=== PATIENT | female | born 1960 | race Caucasian/White ===

== ENCOUNTER → 2018-04-13 | Outpatient (CLI) | payer BC ==
[2018-04-13 09:28] LABS: HCT 42.8 % (34.0-46.0); HGB 14.4 gm/dL (11.4-16.0); MCH 31.7 pg (25.0-35.0); MCHC 33.6 g/dL (31.0-37.0); MCV 94.4 fL (80.0-100.0); Mean Platelet Volume 6.7; Platelet Count 279 k/uL (150-450); RBC 4.53 m/uL (3.80-5.40); RDW 13.3 % (11.5-15.5); WBC 5.4 k/uL (3.8-10.6)
[2018-04-13 09:39] LABS: ALT 32 U/L (9-52); AST 21 U/L (14-36); Albumin 4.3 g/dL (3.5-5.0); Alkaline Phosphatase 83 U/L (38-126); Anion Gap 5 mmol/L; Blood Urea Nitrogen 16 mg/dL (7-17); Calcium 9.4 mg/dL (8.4-10.2); Carbon Dioxide 31 mmol/L (22-30); Chloride 106 mmol/L (98-107); Cholesterol 154 mg/dL (<200); Glucose 82 mg/dL (74-99); HDL Cholesterol 61 mg/dL (40-60); LDL Cholesterol,Calculated 84 mg/dL (0-99); Potassium 4.1 mmol/L (3.5-5.1); Sodium 142 mmol/L (137-145); Total Bilirubin 0.5 mg/dL (0.2-1.3); Total Protein 7.3 g/dL (6.3-8.2); Triglycerides 46 mg/dL (<150)
[2018-04-13 09:53] LABS: T4, Free (Free Thyroxine) 0.81 ng/dL (0.78-2.19)
== END | disposition home or self-care (01) ==
LOC: LABWHC1 08:50
PROVIDERS: ATTEND Obstetrics & Gynecology
DX: R53.83 Other fatigue (principal); Z13.220 Encounter for screening for lipoid disorders; Z13.29 Encounter for screening for other suspected endocrine disorder; Z13.1 Encounter for screening for diabetes mellitus
CPT/HCPCS: 36415; 80053; 80061; 82306; 84439; 84443; 85027

== ENCOUNTER → 2018-11-07 | Outpatient (CLI) | payer OTHER ==
--- NOTE | 2018-11-07 10:26 | US ---
EXAMINATION TYPE: US transvaginal DATE OF EXAM: 11/07/2018 COMPARISON: NONE CLINICAL HISTORY: R10.2 pelvic pain. Pelvic pain, right > left; G0 TECHNIQUE: Transvaginal (TV) as patient is unable to hold full bladder for TA US Date of LMP: approximately age 56 EXAM MEASUREMENTS: Uterus: 5.8 x 3.9 x 1.9 cm Endometrial Stripe: 0.2 cm Right Ovary: 1.6 x 0.8 x 0.8 cm Left Ovary: 1.7 x 1.4 x 0.6 cm Prominent overlying bowel is noted especially on right side 1. Uterus: Retroverted 2. Endometrium: thickness is wnl post menopause 3. Right Ovary: small follicles 4. Left Ovary: small follicles Spectral, color and waveform Doppler imaging shows good arterial and venous flow within the ovaries ; there is no evidence for ovarian torsion. 5. Bilateral Adnexa: wnl 6. Posterior cul-de-sac: wnl IMPRESSION: No distinct abnormality appreciated at this time.
== END ==
LOC: RADUSWWP 09:16
PROVIDERS: ATTEND Obstetrics & Gynecology
DX: R10.2 Pelvic and perineal pain (principal)
CPT/HCPCS: 76830

== ENCOUNTER → 2021-07-07 | Outpatient (CLI) | payer OTHER ==
[2021-07-08 00:38] LABS: African American GFR (CKD) 110.7 (60.0-200.0); Blood Urea Nitrogen 12.4 mg/dL (9.0-27.0); Non-African American GFR(CKD) 95.5 (60.0-200.0)
== END | disposition home or self-care (01) ==
LOC: LABWHC1 13:21
PROVIDERS: ATTEND Psychiatry & Neurology Neurology
DX: R51.9 Headache, unspecified (principal)
CPT/HCPCS: 36415; 82565; 84520

== ENCOUNTER → 2021-07-09 | Outpatient (CLI) | payer OTHER ==
--- NOTE | 2021-07-09 10:05 | MR ---
EXAMINATION TYPE: MR brain wo/w con DATE OF EXAM: 07/09/2021 COMPARISON: Outside brain MRI February 24, 2014 HISTORY: Brain Tumor, pain left side of head TECHNIQUE: Multiplanar, multisequence images of the brain and brainstem is performed without and with IV contras t, utilizing 5 mL intravenous Gadavist . FINDINGS: Diffusion weighted images demonstrate no evidence of a recent infarct or other diffusion ab normality. There is no extra-axial fluid collection or significant white matter signal abnormality. The ventricular system and cisternal spaces are normal in size and appearance. The brain volume is age appropriate. Midline structures demonstrate normal morphology. The craniocervical junction appears within normal limits. Post contrast images demonstrate no abnormal enhancement. The dural venous sinuses appear pa tent. The visualized sinuses are clear and the globes are intact. IMPRESSION: Unremarkable study. No significant change from outside MRI images 2013.
== END | disposition home or self-care (01) ==
LOC: RADMRIMAIN 06:33
PROVIDERS: ATTEND Psychiatry & Neurology Neurology
DX: C71.9 Malignant neoplasm of brain, unspecified (principal)
CPT/HCPCS: 70553; A9585

== ENCOUNTER 2022-03-31 12:58 | Emergency (ER) | payer OTHER ==
[2022-03-31 13:10] VITALS: TEMP 98.4
--- NOTE | 2022-03-31 13:29 | ED ---
General Adult HPI - General Source: patient, RN notes reviewed Mode of arrival: ambulatory Limitations: no limitations <Alberto Durbin - Last Filed: 03/31/22 14:56> <Matthew Alves - Last Filed: 03/31/22 17:16> - General Chief complaint: Weakness Stated complaint: b/l leg edema Time Seen by Provider: 03/31/22 13:11 - History of Present Illness Initial comments: Patient is a pleasant 61-year-old female presenting to the emergency department with concerns with swelling of her legs. Symptoms have been present the past couple of days. Patient notices some swelling with some mild discomfort anterior legs. Patient also has some mild diffuse joint discomfort and questions if that is her S2 arthritis causing this. Patient also questions if her anxiety is making her symptoms worse. Patient has mild increased urinary frequency. (Alberto Durbin) - Related Data Allergies Allergy/AdvReac Type Severity Reaction Status Date / Time iodine AdvReac Anaphylaxis Verified 03/31/22 13:10 Review of Systems ROS Other: All systems not noted in ROS Statement are negative. Constitutional: Denies: fever Eyes: Denies: eye pain ENT: Denies: ear pain Respiratory: Denies: cough Cardiovascular: Denies: chest pain Endocrine: Reports: fatigue Gastrointestinal: Denies: abdominal pain Genitourinary: Reports: frequency Musculoskeletal: Reports: as per HPI Skin: Denies: rash Neurological: Denies: confusion <Alberto Durbin - Last Filed: 03/31/22 14:56> ROS Other: All systems not noted in ROS Statement are negative. <Matthew Alves - Last Filed: 03/31/22 17:16> ROS Statement: Those systems with pertinent positive or pertinent negative responses have been documented in the HPI. Past Medical History Past Medical History: Osteoarthritis (OA) Past Surgical History: No Surgical Hx Reported, Orthopedic Surgery Past Psychological History: No Psychological Hx Reported Smoking Status: Never smoker Past Alcohol Use History: None Reported Past Drug Use History: None Reported <Alberto Durbin - Last Filed: 03/31/22 14:56> General Exam Limitations: no limitations General appearance: alert, in no apparent distress Head exam: Present: normocephalic Eye exam: Present: normal appearance Neck exam: Present: normal inspection Respiratory exam: Present: normal lung sounds bilaterally Cardiovascular Exam: Present: regular rate, normal rhythm Expanded Peripheral pulses: 2+: Posterior Tibialis (R), Posterior Tibialis (L), Dorsalis Pedis (R), Dorsalis Pedis (L) GI/Abdominal exam: Present: soft. Absent: tenderness Extremities exam: Present: pedal edema (Trace bilateral). Absent: calf tenderness Neurological exam: Present: alert. Absent: motor sensory deficit Psychiatric exam: Present: normal affect, normal mood Skin exam: Present: normal color <Alberto Durbin - Last Filed: 03/31/22 14:56> Course Vital Signs 03/31/22 03/31/22 13:06 16:42 Temperature 98.4 F Pulse Rate 85 78 Respiratory 20 16 Rate Blood Pressure 136/77 123/82 O2 Sat by Pulse 96 98 Oximetry Medical Decision Making - Radiology Data Radiology results: report reviewed (Bilateral leg ultrasound negative for DVT) <Alberto Durbin - Last Filed: 03/31/22 14:56> - Lab Data Result diagrams: 03/31/22 14:43 03/31/22 14:43 <Matthew Alves - Last Filed: 03/31/22 17:16> - Medical Decision Making The patient was passed off from previous shift. The laboratory overall is unremarkable. The chest x-ray showed possible hyperinflation and/or COPD changes. The patient denies any tobacco history. She does exercise regularly. There is no shortness of breath. It is felt as though this potentially could be an over read and this is discussed with patient. If she is concerned in this r egard she is instructed to follow-up with primary care for pulmonary function studies. The patient had a lower extremity venous Doppler which is negative for DVT. She is still concern as to the cause of her lower extremity subjective swelling. I do not notice any significant degree of swelling on my exam. She likely does have some dependent edema and this is discussed in significant detail. Compression stockings are recommended. leg elevation is recommended. At disposition, she is requesting that her urinalysis be sent for evaluation as she's had some urinary frequency. This is sent for evaluation as well and followed up on. Return parameters are discussed. Close follow-up with primary care recommended. (Matthew Alves) - Lab Data Lab Results 03/31/22 03/31/22 03/31/22 Range/Units 14:43 14:43 14:43 WBC 8.0 (3.8-10.6) k/uL RBC 5.11 (3.80-5.40) m/uL Hgb 15.9 (11.4-16.0) gm/dL Hct 48.6 H (34.0-46.0) % MCV 95.1 (80.0-100.0) fL MCH 31.2 (25.0-35.0) pg MCHC 32.8 (31.0-37.0) g/dL RDW 12.8 (11.5-15.5) % Plt Count 310 (150-450) k/uL MPV 7.0 Neutrophils % 65 % Lymphocytes % 23 % Monocytes % 7 % Eosinophils % 2 % Basophils % 1 % Neutrophils # 5.3 (1.3-7.7) k/uL Lymphocytes # 1.9 (1.0-4.8) k/uL Monocytes # 0.5 (0-1.0) k/uL Eosinophils # 0.2 (0-0.7) k/uL Basophils # 0.1 (0-0.2) k/uL PT 10.7 (9.0-12.0) sec INR 1.0 (<1.2) APTT 25.3 (22.0-30.0) sec Sodium 140 (137-145) mmol/L Potassium 3.9 (3.5-5.1) mmol/L Chloride 100 (98-107) mmol/L Carbon Dioxide 24 (22-30) mmol/L Anion Gap 16 mmol/L BUN 16 (7-17) mg/dL Creatinine 0.58 (0.52-1.04) mg/dL Est GFR (CKD-EPI)AfAm >90 (>60 ml/min/1.73 sqM) Est GFR (CKD-EPI)NonAf >90 (>60 ml/min/1.73 sqM) Glucose 83 (74-99) mg/dL Calcium 10.1 (8.4-10.2) mg/dL Total Bilirubin 0.7 (0.2-1.3) mg/dL AST 29 (14-36) U/L ALT 18 (4-34) U/L Alkaline Phosphatase 105 (38-126) U/L C-Reactive Protein <0.5 (<1.0) mg/dL NT-Pro-B Natriuret Pep pg/mL Total Protein 8.4 H (6.3-8.2) g/dL Albumin 5.1 H (3.5-5.0) g/dL 03/31/22 Range/Units 14:43 WBC (3.8-10.6) k/uL RBC (3.80-5.40) m/uL Hgb (11.4-16.0) gm/dL Hct (34.0-46.0) % MCV (80.0-100.0) fL MCH (25.0-35.0) pg MCHC (31.0-37.0) g/dL RDW (11.5-15.5) % Plt Count (150-450) k/uL MPV Neutrophils % % Lymphocytes % % Monocytes % % Eosinophils % % Basophils % % Neutrophils # (1.3-7.7) k/uL Lymphocytes # (1.0-4.8) k/uL Monocytes # (0-1.0) k/uL Eosinophils # (0-0.7) k/uL Basophils # (0-0.2) k/uL PT (9.0-12.0) sec INR (<1.2) APTT (22.0-30.0) sec Sodium (137-145) mmol/L Potassium (3.5-5.1) mmol/L Chloride (98-107) mmol/L Carbon Dioxide (22-30) mmol/L Anion Gap mmol/L BUN (7-17) mg/dL Creatinine (0.52-1.04) mg/dL Est GFR (CKD-EPI)AfAm (>60 ml/min/1.73 sqM) Est GFR (CKD-EPI)NonAf (>60 ml/min/1.73 sqM) Glucose (74-99) mg/dL Calcium (8.4-10.2) mg/dL Total Bilirubin (0.2-1.3) mg/dL AST (14-36) U/L ALT (4-34) U/L Alkaline Phosphatase (38-126) U/L C-Reactive Protein (<1.0) mg/dL NT-Pro-B Natriuret Pep 46 pg/mL Total Protein (6.3-8.2) g/dL Albumin (3.5-5.0) g/dL Disposition <Alberto Durbin - Last Filed: 03/31/22 14:56> Is patient prescribed a controlled substance at d/c from ED?: No Time of Disposition: 17:16 <Matthew Alves - Last Filed: 03/31/22 17:16> Clinical Impression: Leg swelling Disposition: HOME SELF-CARE Condition: Good Instructions (If sedation given, give patient instructions): Leg Edema (ED) Referrals: Nonstaff,Physician [REFERRING] - 1-2 days
--- NOTE | 2022-03-31 14:09 | US ---
EXAMINATION TYPE: US venous doppler duplex LE DATE OF EXAM: 03/31/2022 1:56 PM COMPARISON: NONE CLINICAL HISTORY: swelling. leg swelling since January SIDE PERFORMED: Bilateral TECHNIQUE: The lower extremity deep venous system is examined utilizing real time linear array sonog jeffery with graded compression, doppler sonography and color-flow sonography. VESSELS IMAGED: Common Femoral Vein Deep Femoral Vein Greater Saphenous Vein * Femoral Vein Popliteal Vein Small Saphenous Vein * Proximal Calf Veins (* superficial vessels) Right Leg: Negative for DVT Left Leg: Negative for DVT Grayscale, color doppler, spectral doppler imaging performed of the deep veins of the lower extremiti es. There is normal flow, compressibility, vascular waveforms. IMPRESSION: No evidence for deep vein to most of either lower extremity.
[2022-03-31 15:03] LABS: Basophils # (A) 0.1 k/uL (0-0.2); Basophils % (A) 1 %; Eosinophils # (A) 0.2 k/uL (0-0.7); Eosinophils % (A) 2 %; HCT 48.6 % (34.0-46.0); HGB 15.9 gm/dL (11.4-16.0); Lymphocytes # (A) 1.9 k/uL (1.0-4.8); Lymphocytes % (A) 23 %; MCH 31.2 pg (25.0-35.0); MCHC 32.8 g/dL (31.0-37.0); MCV 95.1 fL (80.0-100.0); Monocytes # (A) 0.5 k/uL (0-1.0); Monocytes % (A) 7 %; Neutrophils # (A) 5.3 k/uL (1.3-7.7); Neutrophils % (A) 65 %; Platelet Count 310 k/uL (150-450); RBC 5.11 m/uL (3.80-5.40); RDW 12.8 % (11.5-15.5)
[2022-03-31 15:11] LABS: Partial Thromboplastin Time 25.3 sec (22.0-30.0); Prothrombin Time 10.7 sec (9.0-12.0)
[2022-03-31 15:14] LABS: ALT 18 U/L (4-34); AST 29 U/L (14-36); African American GFR (CKD) >90 (>60 ml/min/1.73 sqM); Albumin 5.1 g/dL (3.5-5.0); Alkaline Phosphatase 105 U/L (38-126); Anion Gap 16 mmol/L; Blood Urea Nitrogen 16 mg/dL (7-17); C Reactive Protein <0.5 mg/dL (<1.0); Calcium 10.1 mg/dL (8.4-10.2); Carbon Dioxide 24 mmol/L (22-30); Chloride 100 mmol/L (98-107); Glucose 83 mg/dL (74-99); Non-African American GFR(CKD) >90 (>60 ml/min/1.73 sqM); Potassium 3.9 mmol/L (3.5-5.1); Sodium 140 mmol/L (137-145); Total Bilirubin 0.7 mg/dL (0.2-1.3); Total Protein 8.4 g/dL (6.3-8.2)
--- NOTE | 2022-03-31 15:27 | XR ---
EXAMINATION TYPE: XR chest 2V DATE OF EXAM: 03/31/2022 COMPARISON: None HISTORY: 61-year-old female bilateral leg edema and weakness TECHNIQUE: PA and lateral views FINDINGS: Heart normal size. Aorta and pulmonary vasculature within normal limits. Mild interstitial prominence as a chronic appearance. Mild hyperinflation. No consolidation or pleural effusion. IMPRESSION: Possible underlying COPD. Otherwise, no acute process seen.
[2022-03-31 16:51] VITALS: RESP 16
[2022-03-31 17:23] LABS: Appearance,Urine Clear (Clear); Bilirubin,Urine Negative (Negative); Blood,Urine Negative (Negative); Color,Urine Colorless; Glucose,Urine (UA) Negative (Negative); Ketones,Urine Negative (Negative); Leukocyte Esterase,Urine Negative (Negative); Nitrite,Urine Negative (Negative); PH, Urine 6.5 (5.0-8.0); Protein,Urine Negative (Negative); Specific Gravity,Urine 1.001 (1.001-1.035); Urobilinogen,Urine <2.0 mg/dL (<2.0)
[2022-03-31 17:50] VITALS: BP 121/74; PULSE 69
== END 2022-03-31 17:49 | disposition home or self-care (01) ==
LOC: EC 12:58
DX: M79.89 Other specified soft tissue disorders (principal); R53.1 Weakness; Z88.5 Allergy status to narcotic agent; Z88.8 Allergy status to other drugs, medicaments and biological substances
CPT/HCPCS: 36415; 71046; 80053; 81003; 83880; 85025; 85610; 85730; 86140; 93970; 99285

== ENCOUNTER 2022-11-20 12:28 | Observation (INO) | payer OTHER ==
[2022-11-20] MEDS ORDERED: ASPIRIN 81 MG PO STA (12:47)
[2022-11-20 13:05] LABS: Basophils % (A) 0 %; Eosinophils # (A) 0.1 k/uL (0-0.7); Eosinophils % (A) 2 %; HCT 42.9 % (34.0-46.0); HGB 15.1 gm/dL (11.4-16.0); Lymphocytes # (A) 2.1 k/uL (1.0-4.8); Lymphocytes % (A) 36 %; MCH 32.6 pg (25.0-35.0); MCHC 35.3 g/dL (31.0-37.0); MCV 92.4 fL (80.0-100.0); Mean Platelet Volume 7.2; Monocytes # (A) 0.3 k/uL (0-1.0); Monocytes % (A) 5 %; Neutrophils # (A) 3.3 k/uL (1.3-7.7); Neutrophils % (A) 55 %; Platelet Count 299 k/uL (150-450); RBC 4.64 m/uL (3.80-5.40); RDW 13.4 % (11.5-15.5); WBC 5.9 k/uL (3.8-10.6)
--- NOTE | 2022-11-20 13:17 | XR ---
EXAMINATION TYPE: XR chest 2V DATE OF EXAM: 11/20/2022 COMPARISON: Chest x-ray March 31, 2022 HISTORY: Chest pain. TECHNIQUE: Frontal and lateral views of the chest are obtained. FINDINGS: There is no focal air space opacity, pleural effusion, or pneumothorax seen. The cardiac silhouette size is stable and within normal limits. The osseous structures are intact. Overlying EK G leads are now seen on current study. IMPRESSION: No acute process. No significant change from prior
[2022-11-20 13:22] LABS: ALT 19 U/L (4-34); AST 27 U/L (14-36); African American GFR (CKD) >90 (>60 ml/min/1.73 sqM); Albumin 4.3 g/dL (3.5-5.0); Alkaline Phosphatase 79 U/L (38-126); Anion Gap 8 mmol/L; Blood Urea Nitrogen 13 mg/dL (7-17); Calcium 9.8 mg/dL (8.4-10.2); Carbon Dioxide 27 mmol/L (22-30); Chloride 105 mmol/L (98-107); Glucose 91 mg/dL (74-99); Magnesium 2.2 mg/dL (1.6-2.3); Non-African American GFR(CKD) >90 (>60 ml/min/1.73 sqM); Sodium 140 mmol/L (137-145); Total Bilirubin 0.6 mg/dL (0.2-1.3); Total Protein 7.4 g/dL (6.3-8.2)
[2022-11-20 13:23] LABS: Partial Thromboplastin Time 24.8 sec (22.0-30.0); Prothrombin Time 10.4 sec (9.0-12.0)
--- NOTE | 2022-11-20 13:55 | ED ---
Chest Pain HPI - General Chief Complaint: Chest Pain Stated Complaint: chest pain Time Seen by Provider: 11/20/22 12:38 Source: patient, family, RN notes reviewed Mode of arrival: wheelchair Limitations: no limitations - History of Present Illness Initial Comments: 8-year-old female presents emergency Department with chief complaint of chest pain. Patient states she had covid Several weeks ago does admit that she's had continuation of cough congestion. Patient states though she has not felt well today states that she exercises morning didn't feel well. She then was at the movies and developed worsening chest pain or shortness of breath. Patient denies any prior cardiac disease denies any medications for hyperlipidemia hypertension or diabetes. Patient denies any leg pain but states that she's had ongoing swelling of her right greater than left leg. Denies any diaphoretic episodes denies any current nausea. - Related Data Home Medications Medication Instructions Recorded Confirmed Cholecalciferol [Vitamin D3 (25 50 mcg PO DAILY 11/20/22 11/20/22 Mcg = 1000 Iu)] Multivit-Min/Iron/Folic/Lutein 1 tab PO DAILY 11/20/22 11/20/22 [Centrum Silver Women Tablet] [place]-3/Dha/Epa/Fish Oil [Fish Oil 1 cap PO DAILY 11/20/22 11/20/22 1,000 mg Softgel] valACYclovir HCL [Valtrex] 500 mg PO DAILY 11/20/22 11/20/22 Allergies Allergy/AdvReac Type Severity Reaction Status Date / Time iodine AdvReac Anaphylaxis Verified 11/20/22 14:36 Review of Systems ROS Statement: Those systems with pertinent positive or pertinent negative responses have been documented in the HPI. ROS Other: All systems not noted in ROS Statement are negative. EKG Findings - EKG Comments: EKG Findings:: EKG performed at 12:42 sinus rhythm rate of 77 CA 137 QRS 87 QT/QTC 375/406 - EKG Results: EKG: interpreted by JORDON Past Medical History Past Medical History: Osteoarthritis (OA) Past Surgical History: No Surgical Hx Reported, Orthopedic Surgery Past Psychological History: No Psychological Hx Reported Smoking Status: Never smoker Past Alcohol Use History: None Reported Past Drug Use History: None Reported General Exam Limitations: no limitations General appearance: alert, in no apparent distress Head exam: Present: atraumatic, normocephalic, normal inspection Eye exam: Present: normal appearance, PERRL, EOMI. Absent: scleral icterus, conjunctival injection, periorbital swelling ENT exam: Present: normal exam, normal oropharynx, mucous membranes moist, TM's normal bilaterally Neck exam: Present: normal inspection. Absent: tenderness, meningismus, lymphadenopathy Respiratory exam: Present: normal lung sounds bilaterally. Absent: respiratory distress, wheezes, rales, rhonchi, stridor Cardiovascular Exam: Present: regular rate, normal rhythm, normal heart sounds. Absent: systolic murmur, diastolic murmur, rubs, gallop, clicks Neurological exam: Present: alert Course Vital Signs 11/20/22 12:32 Temperature 97.5 F L Pulse Rate 88 Respiratory 16 Rate Blood Pressure 162/91 O2 Sat by Pulse 100 Oximetry Chest Pain MDM - MDM Was pt. sent in by a medical professional or institution (, PA, TOUR OPERATOR, urgent care, hospital, or prison...) When possible be specific @ -[No] Did you speak to anyone other than the patient for history (EMS, parent, family, police, friend...)? What history was obtained from this source @ -[No] Did you review nursing and triage notes (agree or disagree)? Why? @ -[I reviewed and agree with nursing and triage notes] Were old charts reviewed (outside hosp., previous admission, EMS record, old EKG, old radiological studies, urgent care reports/EKG's, prison records)? Report findings @ -[No old charts were reviewed] Differential Diagnosis (chest pain, altered mental status, abdominal pain women, abdominal pain men, vaginal bleeding, weakness, fever, dyspnea, syncope, headache, dizziness, GI bleed, back pain, seizure, CVA, palpatations, mental health, musculoskeletal)? @ -[Differential Chest Pain: Stable Angina, Unstable Angina, STEMI, NSTEMI Aortic Dissection, Pneumothorax, Musculoskeletal, Esophageal Spasm GERD, Cholecystitis, Pancreatitis, Zoster, this is not meant to be an all-inclusive list. e] EKG interpreted by me (3pts min.). @ -[As above] X-rays interpreted by me (1pt min.). @ -[Chest x-ray shows no acute process] CT interpreted by me (1pt min.). @ -[None done] U/S interpreted by me (1pt. min.). @ -[None done] What testing was considered but not performed or refused? (CT, X-rays, U/S, labs)? Why? @ -[None] What meds were considered but not given or refused? Why? @ -[None] Did you discuss the management of the patient with other professionals (professionals i.e. , PA, TOUR OPERATOR, lab, RT, psych nurse, social insurance specialist, cigarette making machine catcher, teacher, commanding officer motorized squad, behavioral health case manager)? Give summary @ -[EMH for admission with cardiology consult] Was smoking cessation discussed for >3mins.? @ -[No] Was critical care preformed (if so, how long)? @ -[No] Were there social determinants of health that impacted care today? How? (Homelessness, low income, unemployed, alcoholism, drug addiction, transportation, low edu. Level, literacy, decrease access to med. care, care home, rehab)? @ -[No] Was there de-escalation of care discussed even if they declined (Discuss DNR or withdrawal of care, Hospice)? DNR status @ -[No] What co-morbidities impacted this encounter? (DM, HTN, Smoking, COPD, CAD, Cancer, CVA, ARF, Chemo, Hep., AIDS, mental health diagnosis, sleep apnea, morbid obesity)? @ -[None] Was patient admitted / discharged? Hospital course, mention meds given and route, prescriptions, significant lab abnormalities, going to OR and other pertinent info. @ -[Admitted patient be admitted for cardiac rule out with echocardiogram and cardiology consult.] Undiagnosed new problem with uncertain prognosis? @ -[No] Drug Therapy requiring intensive monitoring for toxicity (Heparin, Nitro, Insulin, Cardizem)? @ -[No] Were any procedures done? @ -[No] Diagnosis/symptom? @ -[Chest pain] Acute, or Chronic, or Acute on Chronic? @ -[Acute] Uncomplicated (without systemic symptoms) or Complicated (systemic symptoms)? @ -[Uncomplicated] Side effects of treatment? @ -[No] Exacerbation, Progression, or Severe Exacerbation? @ -[No] Poses a threat to life or bodily function? How? (Chest pain, [place], [place], pneumonia, PE, COPD, DKA, ARF, appy, cholecystitis, CVA, Diverticulitis, Homicidal, Suicidal, threat to staff... and all critical care pts) @ -[Yes patient has chest pain always at risk for cardiac arrest] Disposition Clinical Impression: Chest pain Disposition: ADMITTED IP TO THIS HOSP Referrals: None,Stated [Primary Care Provider] - 1-2 days Time of Disposition: 14:32
[2022-11-20] MEDS ORDERED: ALPRAZolam 0.25 MG TAB PO PRN (14:39)
[2022-11-20] MEDS ORDERED: NITROGLYCERIN SL TABS 0.4 MG TAB SUBLINGUAL PRN (14:39)
--- NOTE | 2022-11-20 20:29 | P.HPIM ---
History of Present Illness H&P Date: 11/20/22 Chief Complaint: chest pain Patient is a 62-year-old female with a known history of osteoarthritis, history of COVID-19 diagnosed on October 07, 2022 presents to ER with complaints of chest pain. Patient states that she had prolonged symptoms of COVID with cough and chest congestion for 2 weeks and has been improved since then.She was able to do exercise this morning. Then she was at the movies and suddenly developed chest pain/pressure at the mid retrosternal chest pain, felt like fullness and had trouble taking deep breath. No radiation of the pain. No nausea or vomiting. No headache or dizziness or lightheadedness. No palpitations. Denies any calf tenderness or pain. Patient states that she has been having bilateral ankle swelling which is not new currently. No complaints of abdominal pain or diarrhea. Denies any [id number] pain medication use. Patient denies any history of prior smoking. She is very anxious and also thinks he may have exposed to mold at home. Chest x-ray showed no acute process. No significant change from prior. EKG showed sinus rhythm. Laboratory test showed WBC 5.9 hemoglobin 15.1 and platelets 299 D-dimer 0.24 Sodium 140 potassium 4.0 chloride 105 bicarb is 27 BUN 13 and creatinine 0.5 And blood sugar is 91 Liver enzymes are not elevated Troponin x2 negative proBNP level is 61. Review of Systems Constitutional: Patient denies any fever or chills . no Generalized weakness. Abdomen: Patient denied any nausea or vomiting or abd. pain Cardiovascular: Patient is complaining of chest pain/pressure. No shortness of breath. No palpitations. No leg swelling. Respiratory: patient denied any cough . no sputum production. No shortness of breath Neurologic: Patient denied any numbness or tingling headache. Musculoskeletal: Patient denies any complaints of joint swelling or deformity. Skin: Negative Psychiatric: Negative Endocrine: No heat or cold intolerance. No recent weight gain. Genitourinary: No dysuria or hematuria. All other 14 point ROS negative except the above Past Medical History Past Medical History: Osteoarthritis (OA) History of Any Multi-Drug Resistant Organisms: None Reported Past Surgical History: Orthopedic Surgery Additional Past Surgical History / Comment(s): right ankle with hardware- removed. Past Psychological History: No Psychological Hx Reported Smoking Status: Never smoker Past Alcohol Use History: None Reported Past Drug Use History: None Reported Medications and Allergies Home Medications Medication Instructions Recorded Confirmed Type Cholecalciferol [Vitamin D3 (25 50 mcg PO DAILY 11/20/22 11/20/22 History Mcg = 1000 Iu)] Multivit-Min/Iron/Folic/Lutein 1 tab PO DAILY 11/20/22 11/20/22 History [Centrum Silver Women Tablet] [place]-3/Dha/Epa/Fish Oil [Fish Oil 1 cap PO DAILY 11/20/22 11/20/22 History 1,000 mg Softgel] valACYclovir HCL [Valtrex] 500 mg PO DAILY 11/20/22 11/20/22 History Allergies Allergy/AdvReac Type Severity Reaction Status Date / Time iodine AdvReac Anaphylaxis Verified 11/20/22 14:36 Physical Exam Vitals: Vital Signs Temp Pulse Pulse Resp BP BP Pulse Ox 11/20/22 16:42 98.3 F 80 15 150/86 97 11/20/22 16:07 68 17 120/66 70 L 11/20/22 15:00 70 16 139/75 98 11/20/22 12:32 97.5 F L 88 16 162/91 100 Intake and Output 11/20/22 11/20/22 11/20/22 06:59 14:59 22:59 Other: Weight 54.431 kg 54.431 kg PHYSICAL EXAMINATION: Patient is lying in the bed comfortably, no acute distress, awake alert and oriented.. HEENT: Normocephalic. Neck is supple. Pupils reactive. Nostrils clear. Oral cavity is moist. Neck reveals no JVD, carotid bruits, or thyromegaly. CHEST EXAMINATION: Trachea is central. Symmetrical expansion. Lung rich clear to auscultation and percussion. CARDIAC: Normal S1, S2 with no gallops. No murmurs ABDOMEN: Soft. Bowel sounds present. Nontender. No organomegaly. No abdominal bruits. Extremities: reveal no edema. No clubbing or cyanosis Neurologically awake, alert, oriented x3 with well-coordinated movements. No focal deficits noted Skin: No rash or skin lesions. Psychiatric: Coperative. Nonsuicidal, anxious Musculoskeletal: No joint swelling or deformity. Normal range of motion. Results CBC & Chem 7: 11/20/22 12:51 11/20/22 12:51 Thrombosis Risk Factor Assmnt - DVT/VTE Prophylaxis DVT/VTE Prophylaxis: Pharmacologic Prophylaxis ordered - Choose All That Apply Any of the Below Risk Factors Present?: Yes Each Factor Represents 1 point: Age 41-60 years Other Risk Factors: No Thrombosis Risk Factor Assessment Total Risk Factor Score: 1 Thrombosis Risk Factor Assessment Level: Low Risk Assessment and Plan Assessment: Atypical chest pain. Rule out ACS. History of COVID-19 diagnosed on 10/07/2022 with prolonged symptoms for 2 weeks. Patient has been vaccinated and booster dose x1 Anxiety Osteoarthritis DVT prophylaxis on heparin subcu Plan: Patient will be continued on telemetry monitoring. Serial EKG and troponin x3. D-dimer is not elevated and proBNP level is 61. Cardiology was consulted for evaluation. Continue to follow closely. Discussed with the patient and her at bedside in detail. Time with Patient: Greater than 30
[2022-11-20 22:53] VITALS: RESP 16
[2022-11-21] MEDS: HEPARIN SODIUM,PORCINE/PF 5,000 UNIT/0.5 ML SYRINGE SQ SCH ×2 (00:14→09:19)
[2022-11-21] MEDS ORDERED: SODIUM CHLORIDE 0.9% 1,000 ML IV SCH (08:45)
[2022-11-21 08:46] VITALS: BP 125/62; PULSE 66; TEMP 97.8
[2022-11-21] MEDS ORDERED: ASPIRIN 325 MG TAB PO SCH (09:00)
[2022-11-21 09:37] LABS: African American GFR (CKD) 109.1 (60.0-200.0); BUN/Creat Ratio 14.29 Ratio (12.00-20.00); Calcium 9.5 mg/dL (8.7-10.3); Carbon Dioxide 27.1 mmol/L (20.0-27.5); Chloride 106 mmol/L (96-109); Chol/HDL Ratio 3.06 Ratio; Glucose 91 mg/dL (70-110); LDL Cholesterol,Calculated 89.3 mg/dL (0.0-131.0); Non-African American GFR(CKD) 94.2 (60.0-200.0); Potassium 4.4 mmol/L (3.5-5.5); Sodium 142 mmol/L (135-145)
--- NOTE | 2022-11-21 12:22 | P.CRDCN ---
History of Present Illness Consult date: 11/21/22 Consult reason: chest pain History of present illness: History of present illness: This is a 62-year-old female with no previous cardiac history, does not follow with a rn transport. She has a past medical history of osteoarthritis. She denies family history of coronary artery disease. No history of hypertension or diabetes. Patient gives history that she did have Covid in September and had fever and body aches, no pneumonia. She did have some sputum production that eventually went away. On Monday she was feeling fine did some work out at home and then went to the movie theater and approximate 15 minutes she developed chest pain that was in intense pain midsternal to the left of sternum a burning type pain. At this time, and feels a little bit tight. She did not have any lightheadedness dizziness, no nausea, no sweats, no fever or chills. Patient states that she has palpitations that her heart is beating hard but not fast. She has been off work caring for her elderly parents who are getting to the point that pain are unable stay at home anymore. She has been under increased stress. She does not feel that stress is causing her chest pain. EKG normal sinus rhythm with no acute ST changes. Chest x-ray: Normal Troponin negative 3, CBC, CMP within normal limits. Triglycerides 52, cholesterol 148, LDL 89, HDL 48. D-dimer 0.24 Home cardiac medications: None Review Of Systems: At the time of my evaluation: Constitutional: No fever, no chills. No weakness, fatigue or lethargy. EENT: No headache. No dizziness. Lungs: No shortness of breath, cough, no sputum production. No wheezing. Cardiovascular: Mild chest pain, no lower extremity edema. No palpitations. No paroxysmal nocturnal dyspnea. No orthopnea. No lightheadedness or dizziness. No syncopal episodes. Abdominal: No abdominal pain. No nausea, vomiting. No diarrhea. No constipation. No bloody or tarry stools. Genitourinary: No dysuria.. No urinary retention. Musculoskeletal: No myalgias. No muscle weakness, no frequent falls. No back pain. No neck pain. Integumentary: No wounds. No rash. No unusual bruising. Neurologic: No aphasia. No facial droop. No change in mentation. No head injury. No headache. Physical examination: Gen: This is a 62-year-old female. She is resting in bed appears to be comfortable and in no acute distress VS: reviewed HEENT: Head is atraumatic, normocephalic. Pupils equal, round. Sclerae is anicteric. NECK: Supple. No JVD. . LUNGS: Clear to auscultation. No wheezes or rhonchi. No intercostal retractions. HEART: Regular rate and rhythm. No murmur. ABDOMEN: Soft No tenderness. EXTREMITIES: No pedal edema. No calf tenderness. NEUROLOGICAL: Patient is awake, alert and oriented x3. Assessment: Chest pain, acute coronary syndrome ruled out, chest pain most likely due to musculoskeletal pain Osteoarthritis Plan: Obtain stress echocardiogram today Obtain 2-D echocardiogram and Doppler study to assess cardiac structure and function If testing is within normal limits, patient is cleared for discharge home. Thank you kindly for this consultation. Nurse practitioner note has been reviewed, I agree with documented findings and plan of care. Patient was seen and examined. Past Medical History Past Medical History: Osteoarthritis (OA) History of Any Multi-Drug Resistant Organisms: None Reported Past Surgical History: Orthopedic Surgery Additional Past Surgical History / Comment(s): right ankle with hardware- removed. Past Psychological History: No Psychological Hx Reported Smoking Status: Never smoker Past Alcohol Use History: None Reported Past Drug Use History: None Reported Medications and Allergies Home Medications Medication Instructions Recorded Confirmed Type Cholecalciferol [Vitamin D3 (25 50 mcg PO DAILY 11/20/22 11/20/22 History Mcg = 1000 Iu)] Multivit-Min/Iron/Folic/Lutein 1 tab PO DAILY 11/20/22 11/20/22 History [Centrum Silver Women Tablet] [place]-3/Dha/Epa/Fish Oil [Fish Oil 1 cap PO DAILY 11/20/22 11/20/22 History 1,000 mg Softgel] valACYclovir HCL [Valtrex] 500 mg PO DAILY 11/20/22 11/20/22 History Allergies Allergy/AdvReac Type Severity Reaction Status Date / Time iodine AdvReac Anaphylaxis Verified 11/20/22 14:36 Physical Exam Vitals: Vital Signs Temp Pulse Pulse Resp BP BP Pulse Ox 11/21/22 07:31 100 11/21/22 07:00 97.8 F 66 16 125/62 98 11/21/22 02:21 97.9 F 75 16 121/69 100 11/20/22 19:41 97.8 F 74 16 145/80 100 11/20/22 16:42 98.3 F 80 15 150/86 97 11/20/22 16:07 68 17 120/66 70 L 11/20/22 15:00 70 16 139/75 98 11/20/22 12:32 97.5 F L 88 16 162/91 100 Intake and Output 11/20/22 11/21/22 11/21/22 22:59 06:59 14:59 Other: # Voids 1 1 Weight 54.431 kg Results 11/20/22 12:51 11/21/22 05:05 Cardiac Enzymes 11/20/22 11/20/22 11/20/22 Range/Units 12:51 12:51 15:43 AST 27 (14-36) U/L Troponin I <0.012 <0.012 (0.000-0.034) ng/mL 11/20/22 Range/Units 18:41 AST (14-36) U/L Troponin I <0.012 (0.000-0.034) ng/mL Coagulation 11/20/22 Range/Units 12:51 PT 10.4 (9.0-12.0) sec APTT 24.8 (22.0-30.0) sec Lipids 11/21/22 Range/Units 05:05 Triglycerides 52.00 (0.00-149.00) mg/dL Cholesterol 148.00 (0.00-200.00) mg/dL HDL Cholesterol 48.30 (40.00-60.00) mg/dL Cholesterol/HDL Ratio 3.06 Ratio CBC 11/20/22 Range/Units 12:51 WBC 5.9 (3.8-10.6) k/uL RBC 4.64 (3.80-5.40) m/uL Hgb 15.1 (11.4-16.0) gm/dL Hct 42.9 (34.0-46.0) % Plt Count 299 (150-450) k/uL Comprehensive Metabolic Panel 11/20/22 11/21/22 Range/Units 12:51 05:05 Sodium 140 142 (137-145) mmol/L Potassium 4.0 4.4 (3.5-5.1) mmol/L Chloride 105 106 (98-107) mmol/L Carbon Dioxide 27 27.1 (22-30) mmol/L BUN 13 10.0 (7-17) mg/dL Creatinine 0.59 0.7 (0.52-1.04) mg/dL Glucose 91 91 (74-99) mg/dL Calcium 9.8 9.5 (8.4-10.2) mg/dL AST 27 (14-36) U/L ALT 19 (4-34) U/L Alkaline Phosphatase 79 (38-126) U/L Total Protein 7.4 (6.3-8.2) g/dL Albumin 4.3 (3.5-5.0) g/dL Current Medications Generic Name Dose Route Start Last Admin Trade Name Freq PRN Reason Stop Dose Admin Alprazolam 0.25 mg 11/20/22 14:39 Alprazolam 0.25 Mg Tab PO QID PRN Anxiety Aspirin 325 mg 11/21/22 09:00 11/21/22 12:05 Aspirin 325 Mg Tab PO 325 mg DAILY [facility] Administration Heparin Sodium (Porcine) 5,000 unit 11/21/22 00:00 11/21/22 09:19 Heparin Sodium,Porcine/Pf 5,000 Unit/0.5 Ml Syringe SQ Not Given Q8HR [facility]ANNA[facility] Sodium Chloride 1,000 mls @ 100 mls/hr 11/21/22 08:45 Saline 0.9% IV .Q10H HANNAH Nitroglycerin 0.4 mg 11/20/22 14:39 Nitroglycerin Sl Tabs 0.4 Mg Tab SUBLINGUAL Q5M PRN Chest Pain Intake and Output 11/20/22 11/21/22 11/21/22 22:59 06:59 14:59 Other: # Voids 1 1 Weight 54.431 kg 11/20/22 12:51 11/21/22 05:05
--- NOTE | 2022-11-21 12:27 | CA ---
Transthoracic Echo Report Name: Argelia Suh Age: 62 Gender: F : 1960 Exam Date: 11/21/2022 09:31 Exam Location: [facility] Ht (in): 61 Wt (lb): 120 Ordering Physician: Pedro Espinal Attending/Referring Phys: [id number], Teddy Electro Mechanic Markie Aguirre RDCS Procedure CPT: Indications: Chest Pain Cardiac Hx: Technical Quality: Fair Contrast 1: Total Dose (mL): Contrast 2: Total Dose (mL): MEASUREMENTS (Male / Female) Normal Values 2D ECHO LV Diastolic Diameter PLAX 4.2 cm 4.2 - 5.9 / 3.9 - 5.3 cm LV Systolic Diameter PLAX 2.9 cm IVS Diastolic Thickness 0.8 cm 0.6 - 1.0 / 0.6 - 0.9 cm LVPW Diastolic Thickness 1.0 cm 0.6 - 1.0 / 0.6 - 0.9 cm LV Relative Wall Thickness 0.4 RV Internal Dim ED PLAX 2.6 cm LA Area 4C View 11.3 cm??? <= 20 cm??? LA Area 2C View 13.0 cm??? <= 20 cm??? M-MODE Aortic Root Diameter MM 2.4 cm AV Cusp Separation MM 1.6 cm DOPPLER AV Peak Velocity 120.8 cm/s AV Peak Gradient 5.8 mmHg LVOT Peak Velocity 135.2 cm/s LVOT Peak Gradient 7.3 mmHg MV Area PHT 7.8 cm??? Mitral E Point Velocity 91.6 cm/s Mitral A Point Velocity 64.6 cm/s Mitral E to A Ratio 1.4 MV Deceleration Time 96.8 ms TR Peak Velocity 233.2 cm/s TR Peak Gradient 21.7 mmHg Right Atrial Pressure 3.0 mmHg Pulmonary Artery Systolic Pressu 24.7 mmHg Right Ventricular Systolic Press 24.7 mmHg FINDINGS Left Ventricle Left ventricular cavity size normal. Left ventricular wall thickness normal. Left ventricular ejection fraction is estimated at 55-60%. Right Ventricle Normal right ventricular size and function. Right ventricular systolic pressure within normal limits. Right Atrium Normal right atrial size. Left Atrium Normal left atrial size. Mitral Valve Structurally normal mitral valve. Mild mitral regurgitation. Aortic Valve Trileaflet aortic valve. No aortic regurgitation. No aortic stenosis. Tricuspid Valve Mild tricuspid regurgitation. Pulmonic Valve Structurally normal pulmonic valve. Pericardium Normal pericardium. No pericardial or pleural effusion. Echo free space anterior to the right ventricle likely represents a fat pad. Aorta Normal size aortic root and proximal ascending aorta. CONCLUSIONS Normal LV size and systolic function. No significant abnormality in the Doppler exam. Small echo free space anteriorly may be a fat pad no clearcut pericardial effusion Previewed by: Dr. Shahbaz Ornelas MD (Electronically Signed) Final Date: 21 November 2022 12:26
--- NOTE | 2022-11-21 12:35 | CA ---
Stress Echo Report Argelia Suh Age: 62 Gender: F : 1960 Exam Date: 11/21/2022 11:12 Exam Location: [facility] Ht (in): Wt (lb): Ordering Physician: Marylu Handley Referring Physician: [id number] Design Verification Engineer: Melissa Trujillo RDCS Technologist Procedure CPT: Indication: CP ICD-9 Codes: Rhythm: Patient History: Atypical angina Cardiac Medications: Medications in past 24 hours: Contrast: Stress Results Protocol: Kenny Total dose(mL): Exercise Duration (min:sec): [address] Depression (mm): Angina Score: Soriano Score: METS: 10.5 Resting HR: 99 Resting BP: 125 / 67 Peak HR: 161 Peak BP: 146 / 60 Max Predicted HR: 160 101 % Max Predicted HR Target HR: 136 Double Product: [id number] Stress Summary: BP Response: Reason for Termination: Reached target heart rate Cardiac Symptoms: ECG Analysis Resting ECG: Stress ECG: Arrhythmia: Echo Analysis Resting Echo: Peak Echo Analysis: MEASUREMENTS (Male/Female) Normal Values CONCLUSIONS Baseline EKG revealed a normal sinus rhythm without significant ST-T changes. Patient walked on a standard Kenny protocol for 9 minutes and achieved a maximal heart rate of 160 bpm which is available 85% of predicted maximal. She did not have any angina. There was no significant arrhythmia. There were no ST segment changes to indicate ischemia. There was some baseline artifact. This is a negative stress test with fair exercise capacity Baseline echo images revealed normal wall motion wall thickening of all segments. At peak exercise there was good augmentation of left ventricular wall motion wall thickening of all segments suggesting that there is no evidence of any stress-induced ischemia on this study. Final impression #1 fair exercise capacity with a negative stress by EKG criteria #2 normal stress echocardiogram without evidence of ischemia Dr. Shahbaz Ornelas MD (Electronically Signed) Final Date: 21 November 2022 12:34
--- NOTE | 2022-11-22 20:31 | P.DS ---
Providers Date of admission: 11/20/22 15:45 Attending physician: Andrés Pizarro Consults: 11/20/22 14:39 Consult Physician Urgent Consulting Provider: Oskar Boyce Consult Reason/Comments: chest pain Do you want consulting provider notified?: Yes Primary care physician: Stated None Hospital Course: Final Diagnosis -Dyspnea and chest tightness improved and likely musculoskeletal secondary to recent viral infection -Acute coronary syndrome ruled out. -Recent diagnosis of covid 19 with continued symptoms of cough and congestion -History of seasonal allergic rhinitis/chronic sinusitis. -History of osteoarthritis -Prior history of gallbladder work up was told she has gallstone. Discharge Disposition Patient is stable for discharge. Cleared by cardiology. Recommend to follow up with remediation technician on discharge for pulmonary function testing. Patient to establish care with primary provider. Albuterol inhaler sent on discharge. Offered patient prednisone taper on discharge which patient declined. Hospital Course Patient is a 62-year-old female with a known history of osteoarthritis, history of COVID-19 diagnosed on October 07, 2022 presents to ER with complaints of chest pain. Patient states that she had prolonged symptoms of COVID with cough and chest congestion for 2 weeks and has been improved since then. She was able to do exercise this morning. Then she was at the movies and suddenly developed chest pain/pressure at the mid retrosternal chest pain, felt like fullness and had trouble taking deep breath. No radiation of the pain. No nausea or vomiting. No headache or dizziness or lightheadedness. No palpitations. Denies any calf tenderness or pain. Patient states that she has been having bilateral ankle swelling which is not new currently. Chest x-ray showed no acute process. No significant change from prior. EKG showed sinus rhythm. Laboratory test showed WBC 5.9 hemoglobin 15.1 and platelets 299. Kidney function stable, troponin negative and proBNP negative. Lipid panel normal. D-Dimer is normal at 0.24. Cardiology consulted and patient underwent stress echocardiogram. Echocardiogram reveals EF 55-60%. Mild MR. Stress Echo reveals fair exercise capacity with a negative stress by EKG criteria and normal stress echocardiogram without evidence of ischemia. Patient was cleared for outpatient follow up. Patient does have family history of asthma and patient has also seen ENT in the past and told she has seasonal allergies and chronic sinusitis. Recommended to use flonase daily in addition to an antihistamine. Patient declined. 11/21/2022 Patient is evaluated today sitting up in the bed. No acute events overnight. Shortness of breath and chest tightness have improved. Patient recommended to continue supportive care on discharge. Patient declines further mediation recommendations. Patient was offered an albuterol inhaler. Lungs are clear, S1 S2 auscultated, abdomen is soft and nontender. Alert x3 and focal neurological is negative. Patient is afebrile, heart rate of 66, blood pressure 125/62, 100% room air. Please see medication reconciliation for a list of current medication. Thank you for allowing us to participate in the care of this patient. h The impression and plan of care has been dictated by Renetta Upton, Nurse Practitioner as directed. Dr. Susan MD I have performed a history and physical examination and medical decision making of this patient, discussed the same with the dictator, and agree with the dictators assessment and plan as written, documented as a scribe. Based on total visit time, I have performed more than 50% of this visit. Patient Condition at Discharge: Stable Plan - Discharge Summary Discharge Rx Participant: Yes New Discharge Prescriptions: New Albuterol Inhaler [Ventolin Hfa Inhaler] 1 - 2 puff INHALATION Q6H PRN #1 each PRN Reason: Shortness Of Breath Or Wheezing Continue Multivit-Min/Iron/Folic/Lutein [Centrum Silver Women Tablet] 1 tab PO DAILY Cholecalciferol [Vitamin D3 (25 Mcg = 1000 Iu)] 50 mcg PO DAILY valACYclovir HCL [Valtrex] 500 mg PO DAILY [place]-3/Dha/Epa/Fish Oil [Fish Oil 1,000 mg Softgel] 1 cap PO DAILY Discharge Medication List Cholecalciferol [Vitamin D3 (25 Mcg = 1000 Iu)] 50 mcg PO DAILY 11/20/22 [History] Multivit-Min/Iron/Folic/Lutein [Centrum Silver Women Tablet] 1 tab PO DAILY 11/20/22 [History] [place]-3/Dha/Epa/Fish Oil [Fish Oil 1,000 mg Softgel] 1 cap PO DAILY 11/20/22 [History] valACYclovir HCL [Valtrex] 500 mg PO DAILY 11/20/22 [History] Albuterol Inhaler [Ventolin Hfa Inhaler] 1 - 2 puff INHALATION Q6H PRN #1 each 11/21/22 [Rx] Follow up Appointment(s)/Referral(s): Shahbaz Ornelas MD [STAFF PHYSICIAN] - 1 Week (Office will call patient with appointment ) None,Stated [Primary Care Provider] - 1-2 days Patient Instructions/Handouts: Chest Pain (DC) Activity/Diet/Wound Care/Special Instructions: Recommend to establish care with a primary provider Follow up with pulmonary for full pulmonary function testing to rule out underlying asthma Albuterol inhaler as needed 1 to 2 puff every 4 to 6 hours for shortness of breath or wheezing Can use over the counter supportive care with antihistamine such as zyrtec or claritin, one that is non-sedating Recommend flonase over the counter 1 spray each nostril daily to decrease inflammation and irritation Follow up with cardiology in 1 to 2 weeks as recommended Discharge/Stand Alone Forms: PH Area PCPs Discharge Disposition: HOME SELF-CARE
== END 2022-11-21 14:40 | disposition home or self-care (01) ==
LOC: EC 12:28 → 6NMEDSUR 15:45
PROVIDERS: ADMIT Internal Medicine; ATTEND Internal Medicine
DX: R07.89 Other chest pain (principal); R06.00 Dyspnea, unspecified; R05.9 Cough, unspecified; R09.81 Nasal congestion; J32.9 Chronic sinusitis, unspecified; J30.2 Other seasonal allergic rhinitis; M19.90 Unspecified osteoarthritis, unspecified site; F41.9 Anxiety disorder, unspecified; Z86.16 Personal history of COVID-19; Z79.899 Other long term (current) drug therapy; Z82.5 Family history of asthma and other chronic lower respiratory diseases
CPT/HCPCS: 99285; 36415; 94760; 93005; 93306; 93351; 85379; 83880; 80061; 80053; 80048; 84443; 83735; 84484; 85025; 85610; 85730; 71046; G0378 ×2

== ENCOUNTER 2023-01-07 13:19 | Emergency (ER) | payer OTHER ==
[2023-01-07 13:24] VITALS: BP 131/78; PULSE 79; RESP 18; TEMP 98
[2023-01-07] MEDS ORDERED: BACITRACIN OINT 1 EACH PACKET TOPICAL ONE (13:24)
[2023-01-07] MEDS ORDERED: DIPH,PERTUS(ACELL)TETVAC-LF 0.5 ML VIAL IM ONE (13:24)
--- NOTE | 2023-01-07 13:24 | ED ---
Wound/Laceration HPI - General Chief Complaint: Wound/Laceration Stated Complaint: R hand finger lac Time Seen by Provider: 01/07/23 13:24 Source: patient, RN notes reviewed Mode of arrival: ambulatory Limitations: no limitations - History of Present Illness Initial Comments: 8-year-old female presents emergency Department chief complaint of finger lacer ation. Patient states she is using a metal trimmer and cut her finger. She washed out thoroughly states she put hydroperoxide. She states she's unsure when her last tetanus was. Please is Under control. Patient states she has no paresthesias no other complaints. - Related Data Home Medications Medication Instructions Recorded Confirmed No Known Home Medications 01/07/23 01/07/23 Allergies Allergy/AdvReac Type Severity Reaction Status Date / Time iodine AdvReac Anaphylaxis Verified 01/07/23 13:24 Review of Systems ROS Statement: Those systems with pertinent positive or pertinent negative responses have been documented in the HPI. ROS Other: All systems not noted in ROS Statement are negative. Past Medical History Past Medical History: Osteoarthritis (OA) Additional Past Medical History / Comment(s): COVID History of Any Multi-Drug Resistant Organisms: None Reported Past Surgical History: Orthopedic Surgery Additional Past Surgical History / Comment(s): right ankle with hardware- removed. Past Psychological History: No Psychological Hx Reported Smoking Status: Never smoker Past Alcohol Use History: None Reported Past Drug Use History: None Reported General Exam Limitations: no limitations General appearance: alert, in no apparent distress Head exam: Present: atraumatic, normocephalic, normal inspection Respiratory exam: Present: normal lung sounds bilaterally. Absent: respiratory distress, wheezes, rales, rhonchi, stridor Cardiovascular Exam: Present: regular rate, normal rhythm, normal heart sounds. Absent: systolic murmur, diastolic murmur, rubs, gallop, clicks Extremities exam: Present: other (Right hand second digit there is superficial laceration, skin avulsion with no active bleeding full range of motion of the digit) Course Vital Signs 01/07/23 13:20 Temperature 98.0 F Pulse Rate 79 Respiratory 18 Rate Blood Pressure 131/78 O2 Sat by Pulse 98 Oximetry Medical Decision Making - Medical Decision Making Was pt. sent in by a medical professional or institution (, PA, CLOTH BLEACHING RANGE BACK TENDER, urgent care, hospital, or penitentiary...) When possible be specific @ -No Did you speak to anyone other than the patient for history (EMS, parent, family, police, friend...)? What history was obtained from this source @ -No Did you review nursing and triage notes (agree or disagree)? Why? @ -I reviewed and agree with nursing and triage notes Were old charts reviewed (outside hosp., previous admission, EMS record, old EKG, old radiological studies, urgent care reports/EKG's, penitentiary records)? Report findings @ -No old charts were reviewed Differential Diagnosis (chest pain, altered mental status, abdominal pain women, abdominal pain men, vaginal bleeding, weakness, fever, dyspnea, syncope, headache, dizziness, GI bleed, back pain, seizure, CVA, palpatations, mental health, musculoskeletal)? @ -Finger laceration, finger abrasion EKG interpreted by me (3pts min.). @ -None X-rays interpreted by me (1pt min.). @ -None done CT interpreted by me (1pt min.). @ -None done U/S interpreted by me (1pt. min.). @ -None done What testing was considered but not performed or refused? (CT, X-rays, U/S, labs)? Why? @ -None What meds were considered but not given or refused? Why? @ -None Did you discuss the management of the patient with other professionals (professionals i.e. , PA, CLOTH [employer]ANGE BACK TENDER, lab, RT, psych nurse, social insurance adviser, livestock counter, teacher, chief client officer, case filler)? Give summary @ -No Was smoking cessation discussed for >3mins.? @ -No Was critical care preformed (if so, how long)? @ -No Were there social determinants of health that impacted care today? How? (Homelessness, low income, unemployed, alcoholism, drug addiction, transportation, low edu. Level, literacy, decrease access to med. care, assisted, rehab)? @ -No Was there de-escalation of care discussed even if they declined (Discuss DNR or withdrawal of care, Hospice)? DNR status @ -No What co-morbidities impacted this encounter? (DM, HTN, Smoking, COPD, CAD, Cancer, CVA, ARF, Chemo, Hep., AIDS, mental health diagnosis, sleep apnea, morbid obesity)? @ -None Was patient admitted / discharged? Hospital course, mention meds given and route, prescriptions, significant lab abnormalities, going to OR and other pertinent info. @ -Discharge patient has superficial laceration required no closure the wound was cleaned, bacitracin applied tetanus is updated. Patient was discharged in stable condition. Undiagnosed new problem with uncertain prognosis? @ -No Drug Therapy requiring intensive monitoring for toxicity (Heparin, Nitro, Insulin, Cardizem)? @ -No Were any procedures done? @ -No Diagnosis/symptom? @ -Superficial finger laceration Acute, or Chronic, or Acute on Chronic? @ -Acute Uncomplicated (without systemic symptoms) or Complicated (systemic symptoms)? @ -Uncomplicated Side effects of treatment? @ -No Exacerbation, Progression, or Severe Exacerbation? @ -No Poses a threat to life or bodily function? How? (Chest pain, [place], [place], pneumonia, PE, COPD, DKA, ARF, appy, cholecystitis, CVA, Diverticulitis, Homicidal, Suicidal, threat to staff... and all critical care pts) @ -No Disposition Clinical Impression: Finger laceration Disposition: HOME SELF-CARE Condition: Stable Instructions (If sedation given, give patient instructions): Finger Laceration (ED) Additional Instructions: Please return to the Emergency Department if symptoms worsen or any other concerns. Is patient prescribed a controlled substance at d/c from ED?: No Referrals: None,Stated [Primary Care Provider] - 1-2 days Time of Disposition: 13:24
== END 2023-01-07 13:57 | disposition home or self-care (01) ==
LOC: EC 13:19
DX: S61.219A Laceration without foreign body of unspecified finger without damage to nail, initial encounter (principal); Z91.041 Radiographic dye allergy status; Z86.16 Personal history of COVID-19; Z23 Encounter for immunization; W29.3XXA Contact with powered garden and outdoor hand tools and machinery, initial encounter
CPT/HCPCS: 90471; 90715; 99282

== ENCOUNTER 2024-06-17 13:13 | Emergency (ER) | payer OTHER ==
[2024-06-17 13:23] VITALS: TEMP 97.9
--- NOTE | 2024-06-17 15:23 | ED ---
Headache HPI - General Source: patient, RN notes reviewed Mode of arrival: ambulatory Limitations: no limitations - History of Present Illness MD Complaint: headache Onset/Timin -: month(s) Onset Description: gradual Location: left, temporal Severity scale (1-10): 10 Quality: other (Pressure) Consistency: constant Associated Symptoms: other (Behavioral changes) Treatments Prior to Arrival: Acetaminophen <Alfredo Barillas - Last Filed: 06/17/24 15:20> - General Source: patient, RN notes reviewed, old records reviewed Mode of arrival: ambulatory Limitations: no limitations - History of Present Illness MD Complaint: headache -: month(s) Onset Description: gradual Location: left, temporal Severity: moderate Severity scale (1-10): 6 Quality: other Consistency: constant Improves With: nothing Worsens With: none Associated Symptoms: other Treatments Prior to Arrival: Acetaminophen <Caesar Christine - Last Filed: 06/21/24 17:38> - General Chief Complaint: Headache Stated Complaint: Neck pain, head pain Time Seen by Provider: 06/17/24 15:05 - History of Present Illness Initial Comments: Quick note: This is a 63-year-old female presenting with left head pressure (10 out of 10 and left ear fullness x 2 months. Patient endorses associated behavioral changes and becoming more short tempered. Patient endorses recent visit to urgent care, receiving antibiotics with no improvement in symptoms. Endorses use of Tylenol with minimal relief. Patient denies recent trauma or known cause for headache. Patient denies dizziness, visual changes, N/V, AMS, altered LOC. Patient endorses increased stress in life due to losses in the family. (Alfredo Barillas) This is a 63-year-old male with left-sided headache and head pressure. Symptoms making patient a little bit more anxious and crabby towards family. Patient has history of headache and has been taking Tylenol without help no neurological complaints (Caesar Christine) - Related Data Home Medications Medication Instructions Recorded Confirmed No Known Home Medications 01/07/23 01/07/23 Allergies Allergy/AdvReac Type Severity Reaction Status Date / Time iodine AdvReac Anaphylaxis Verified 06/17/24 13:18 Review of Systems ROS Other: All systems not noted in ROS Statement are negative. <Alfredo Barillas - Last Filed: 06/17/24 15:20> ROS Other: All systems not noted in ROS Statement are negative. <NanciCaesar B - Last Filed: 06/21/24 17:38> ROS Statement: Those systems with pertinent positive or pertinent negative responses have been documented in the HPI. Past Medical History Past Medical History: Osteoarthritis (OA) Additional Past Medical History / Comment(s): COVID History of Any Multi-Drug Resistant Organisms: None Reported Past Surgical History: Orthopedic Surgery Additional Past Surgical History / Comment(s): right ankle with hardware- removed. Past Psychological History: No Psychological Hx Reported Smoking Status: Never smoker Past Alcohol Use History: None Reported Past Drug Use History: None Reported <Alfredo Barillas - Last Filed: 06/17/24 15:20> General Exam Limitations: no limitations <Alfredo Barillas - Last Filed: 06/17/24 15:20> General appearance: alert, in no apparent distress Head exam: Present: atraumatic, normocephalic, normal inspection Eye exam: Present: normal appearance, PERRL, EOMI. Absent: scleral icterus, conjunctival injection, periorbital swelling ENT exam: Present: normal exam, mucous membranes moist Neck exam: Present: normal inspection. Absent: tenderness, meningismus, lymphadenopathy Respiratory exam: Present: normal lung sounds bilaterally. Absent: respiratory distress, wheezes, rales, rhonchi, stridor Cardiovascular Exam: Present: regular rate, normal rhythm, normal heart sounds. Absent: systolic murmur, diastolic murmur, rubs, gallop, clicks GI/Abdominal exam: Present: soft, normal bowel sounds. Absent: distended, tenderness, guarding, rebound, rigid Extremities exam: Present: normal inspection, full ROM, normal capillary refill. Absent: tenderness, pedal edema, joint swelling, calf tenderness Back exam: Present: normal inspection Neurological exam: Present: alert, oriented X3, CN II-XII intact Psychiatric exam: Present: normal affect, normal mood Skin exam: Present: warm, dry, intact, normal color. Absent: rash <NanciCaesar B - Last Filed: 06/21/24 17:38> - General Exam Comments Initial Comments: Visual Physical Exam Vital signs reviewed General: Well-appearing, nontoxic, no acute distress. Head: Normocephalic, atraumatic Eyes: PERRLA, EOMI ENT: Airway patent Chest: Nonlabored breathing Skin: No visual rash, normal skin tone Neuro: Alert and oriented 3 Musculoskeletal: No gross abnormalities (Alfredo Barillas) Course <Caesar Christine - Last Filed: 06/21/24 17:38> Vital Signs 06/17/24 06/17/24 13:18 17:41 Temperature 97.9 F Pulse Rate 67 78 Respiratory 18 14 Rate Blood Pressure 119/72 122/71 O2 Sat by Pulse 98 98 Oximetry - Reevaluation(s) Reevaluation #1: 06/17/24 17:23 Medical record is reviewed (Caesar Christine) Reevaluation #2: 06/17/24 17:23 Patient symptoms are unchanged (Caesar Christine) Reevaluation #3: 06/17/24 17:23 Patient informed of results and questions answered (Caesar Christine) Reevaluation #4: Was pt. sent in by a medical professional or institution (, PA, INTENSIVE CARE UNIT REGISTERED NURSE, urgent care, hospital, or penitentiary...) When possible be specific @ -no Did you speak to anyone other than the patient for history (EMS, parent, family, police, friend...)? What history was obtained from this source @ -no Did you review nursing and triage notes (agree or disagree)? Why? @ -agree Are old charts reviewed (outside hosp., previous admission, EMS record, old EKG, old radiological studies, urgent care reports/EKG's, penitentiary records)? Report findings @ -yes Differential Diagnosis (chest pain, altered mental status, abdominal pain women, abdominal pain men, vaginal bleeding, weakness, fever, dyspnea, syncope, headache, dizziness, GI bleed, back pain, seizure, CVA, palpatations, mental health, musculoskeletal)? @ -prior EKG interpreted by me (3pts min.). @ -no X-rays interpreted by me (1pt min.). @ -no CT interpreted by me (1pt min.). @ -Yes negative for acute disease U/S interpreted by me (1pt. min.). @ -no What testing was considered but not performed or refused? (CT, X-rays, U/S, labs)? Why? @ -none What meds were considered but not given or refused? Why? @ -none Did you discuss the management of the patient with other professionals (professionals i.e. , PA, INTENSIVE CARE UNIT REGISTERED NURSE, lab, RT, psych nurse, rn social services, instrument mechanic, teacher, chief credit officer, case management assistant)? Give summary @ -no Was smoking cessation discussed for >3mins.? @ -no Was critical care preformed (if so, how long)? @ -no Were there social determinants of health that impacted care today? How? (Homelessness, low income, unemployed, alcoholism, drug addiction, transportation, low edu. Level, literacy, decrease access to med. care, [facility], rehab)? @ -none Was there de-escalation of care discussed even if they declined (Discuss DNR or withdrawal of care, Hospice)? DNR status @ -no What co-morbidities impacted this encounter? (DM, HTN, Smoking, COPD, CAD, Cancer, CVA, ARF, Chemo, Hep., AIDS, mental health diagnosis, sleep apnea, morbid obesity)? @ -none Was patient admitted / discharged? Hospital course, mention meds given and route, prescriptions, significant lab abnormalities, going to OR and other pertinent info. @ - 63 female with persistent headache no findings on CT scan patient will continue to follow-up as an outpatient with ENT Discharge Undiagnosed new problem with uncertain prognosis? @ -no Drug Therapy requiring intensive monitoring for toxicity (Heparin, Nitro, Insulin, Cardizem)? @ -no Were any procedures done? @ -no Diagnosis/symptom? @ -Headache Acute, or Chronic, or Acute on Chronic? @ -Acute Uncomplicated (without systemic symptoms) or Complicated (systemic symptoms)? @ -Complicated Side effects of treatment? @ -no Exacerbation, Progression, or Severe Exacerbation? @ -exacerbation Poses a threat to life or bodily function? How? (Chest pain, [place], [place], pneumonia, PE, COPD, DKA, ARF, appy, cholecystitis, CVA, Diverticulitis, Homicidal, Suicid al, threat to staff... and all critical care pts) @ -yes with severe headache (Caesar Christine) Reevaluation #5: Differential Headache: Migraine, tension, cluster, carbon monoxide, central venous thrombosis, pension karma temporal arteritis, acute closure glaucoma, intercranial hemorrhage, mastoiditis, sinusitis, head injury, this is not meant to be an all-inclusive list. (Caesar Christine) Medical Decision Making <Alfredo Barillas - Last Filed: 06/17/24 15:20> - Radiology Data Radiology results: report reviewed (CT brain is negative for acute disease), image reviewed <Caesar Christine - Last Filed: 06/21/24 17:38> - Medical Decision Making I completed the quick note portion of this chart signed LOGAN Cade (Alfredo Barillas) 63 female with persistent headache no findings on CT scan patient will continue to follow-up as an outpatient with ENT (Caesar Christine) Disposition <Alfredo Barillas - Last Filed: 06/17/24 15:20> Is patient prescribed a controlled substance at d/c from ED?: No Time of Disposition: 16:45 <Caesar Christine - Last Filed: 06/21/24 17:38> Clinical Impression: Headache Disposition: ADMITTED IP TO THIS HOSP Condition: Fair Instructions (If sedation given, give patient instructions): Acute Headache (ED) Referrals: [facility] [NON-STAFF] - 1-2 days [facility] [NON-STAFF] - 1-2 days None,Stated [Primary Care Provider] - 1-2 days Neo Terrazas MD [STAFF PHYSICIAN] - 1-2 days Kg Mohamud MD [STAFF PHYSICIAN] - 1-2 days Forms: Area PCPs
--- NOTE | 2024-06-17 16:26 | CT ---
EXAMINATION TYPE: CT brain wo con DATE OF EXAM: 06/17/2024 COMPARISON: None Findings: The ventricles, basal cisterns and sulci over the convexities are within normal limits and there is n o mass effect or shift of midline structures. No abnormal density is seen throughout the brain parenchyma and there is no acute intra or extra-axia l hemorrhage. The posterior fossa including the brainstem, fourth ventricle and cerebellar pontine angles appear no rmal. Intraorbital contents appear normal and symmetric. Visualized paranasal sinuses and mastoid air cells are well aerated. The calvarium is intact. IMPRESSION: No significant abnormality seen. There is no acute bleed or mass effect. CLINICAL INDICATION: Female, 63 years old with history of Left head pressure x 2 months; PHH, Left he ad pressure x [address] DLP: 1051.4 mGycm Automated exposure control for dose reduction was used. [facility], Workstation: [id number], 06/17/2024 4:24 PM
[2024-06-17 17:42] VITALS: BP 122/71; PULSE 78; RESP 14
== END 2024-06-17 17:44 | disposition other institution (70) ==
LOC: EC 13:13
DX: R51.9 Headache, unspecified (principal); Z91.041 Radiographic dye allergy status; Z86.16 Personal history of COVID-19
CPT/HCPCS: 70450; 99284